=== PATIENT | female | born 1945 | race Caucasian/White ===

== ENCOUNTER 2021-10-31 21:20 | Emergency (ER) | payer MEDICARE ==
[~2021-10-31] VITALS: Ht 167.6 cm; Wt 63.5 kg
[~2021-10-31 21:20] MED LIST: ALENDRONATE SOD70 MG; CRESTOR10 MG; HYDROCHLOROTHIA25 M1; K-DUR 20 MEQ T20 MEQ PO; NEURONTIN 400400 M1
[2021-10-31] MEDS ORDERED: TYLENOL325 MG PO (21:22)
[2021-10-31] MEDS ORDERED: LEXAPRO 10 MG T10 M1 PO (21:22)
[2021-10-31] MEDS ORDERED: ASA81BEC PO (21:22)
[2021-10-31] MEDS ORDERED: NEURONTIN600 MG PO (21:23)
[2021-10-31] MEDS ORDERED: LORAZEPAM 0.50.5 MG PO (21:23)
[2021-10-31] MEDS ORDERED: TRAZODONE HCL50 MG PO (21:24)
[2021-10-31] MEDS ORDERED: LOSARTAN POTASS50 MG PO (21:24)
[2021-10-31] MEDS ORDERED: VITAMIN D350 MCG PO (21:24)
[2021-10-31] MEDS ORDERED: LOPERAMIDE 2 MG2 M1 PO (21:25)
[2021-10-31] MEDS ORDERED: ARICEPT10 M1 PO (21:25)
[2021-10-31 22:02] LABS: ABSOLUTE EOSINOPHILS 0.1 thou/uL (0.0-0.7); ABSOLUTE LYMPHOCYTES 2.1 thou/uL (0.8-5.3); ABSOLUTE MONOCYTES 0.6 thou/uL (0.0-1.2); ABSOLUTE NEUTROPHILS 3.6 thou/uL (1.6-8.1); BASOPHILS 0.6 %; EOSINOPHILS 0.9 %; HEMATOCRIT 38.3 % (37.0-47.0); HEMOGLOBIN 12.7 gm/dL (12.0-15.0); MCH 30.7 pg (26.0-34.0); MCHC 33.2 g/dL (28.0-37.0); MCV 92.5 fL (80.0-100.0); MONOCYTES 9.5 %; MPV 8.2 fl. (7.2-11.1); NUCLEATED RBCS 0 /100WBC; PLATELET COUNT* 232 thou/uL (150-400); RBC 4.15 mil/uL (4.20-5.00); RDW-CV 13.5 % (10.5-14.5); WBC 6.5 thou/uL (4.0-11.0)
[2021-10-31 22:08] LABS: CALCIUM 8.5 mg/dL (8.5-10.1); CREATININE 0.9 mg/dL (0.6-1.3); POTASSIUM 3.4 mmol/L (3.5-5.1)
[2021-11-01 02:13] VITALS: BP 148/72
--- NOTE | 2021-11-01 10:35 | EKG ---
[place] [address] ELECTROCARDIOGRAM REPORT Name: ANEESH SALVADOR Room: [facility]#: [id number] Admission: 10/31/21 Attend Phys: Discharge: 11/01/21 Date of : 43 Date of Service: 10/31/212136 Report #: [id number] THIS REPORT FOR: //name// [facility] ED Test Date: 2021-10-31 Test Time: 21:37:57 Pat Name: ANEESH SALVADOR Department: Room: Gender: [employer] Driver: TO : 1945 Requested By: Meli Falk Order Number: [id number] MD: Davi Farnsworth Measurements Intervals [place] Rate: 61 P: 45 SD: 141 QRS: -7 QRSD: 96 T: 43 QT: 460 QTc: 464 Interpretive Statements Sinus rhythm Borderline T abnormalities, lateral leads Baseline wander in lead(s) II,III,aVF Compared to ECG 11/06/2013 13:17:07 no change Electronically Signed On 11-01-2021 10:35:00 [employer]OL [employer] by Davi Farnsworth [email or web address] <ELECTRONICALLY SIGNED> By: Davi Farnsworth MD, FAC 11/01/21 1035 36 Davi Farnsworth MD, [facility] /EPI
== END 2021-11-01 02:13 | disposition home or self-care (01) ==
LOC: M.ERS 21:20
PROVIDERS: Emergency Medicine
DX: S01.81XA Laceration without foreign body of other part of head, initial encounter (principal); I10 Essential (primary) hypertension; E78.00 Pure hypercholesterolemia, unspecified; F32.9 Major depressive disorder, single episode, unspecified; Z79.82 Long term (current) use of aspirin; Z79.899 Other long term (current) drug therapy; W19.XXXA Unspecified fall, initial encounter; Y93.89 Activity, other specified; Y92.89 Other specified places as the place of occurrence of the external cause; Y99.8 Other external cause status